=== PATIENT | male | born 1950 | race Caucasian/White ===

== ENCOUNTER → 2019-01-08 | Outpatient (CLI) | payer MEDICARE | END | disposition home or self-care (01) | LOC: CFH 11:02 | PROVIDERS: ATTEND Family Medicine | DX: M47.816 Spondylosis without myelopathy or radiculopathy, lumbar region (principal); M79.604 Pain in right leg | CPT/HCPCS: 72114 ==

== ENCOUNTER 2020-09-10 05:47 | Day surgery (SDC) | payer MEDICARE ==
[2020-09-07 10:47] VITALS: BP 146/83
[2020-09-07 12:07] LABS: BASOPHILS % (AUTO) 1 % (0-1); EOSINOPHILS % (AUTO) 1 % (1-7); LYMPHOCYTES % (AUTO) 27 % (22-44); MEAN CORPUSCULAR HEMOGLOBIN 31.7 pg (27.5-34.5); MEAN CORPUSCULAR HGB CONC 33.4 g/dL (33.2-36.2); MEAN PLATELET VOLUME 7.5 fL (7.4-10.4); MONOCYTES % (AUTO) 10 % (2-9); NEUTROPHILS % (AUTO) 62 % (42-75); PLATELET COUNT 201 x10^3/uL (130-400); RED BLOOD COUNT 4.67 x10^6/uL (4.38-5.82); RED CELL DISTRIBUTION WIDTH 12.9 % (9.4-14.8)
[2020-09-07 12:11] LABS: MD NO
[2020-09-07 12:14] LABS: CHLORIDE 105 mmol/L (98-107)
[2020-09-07 12:19] LABS: INTERNATIONAL NORMALIZED RATIO 1.02 (0.93-1.1); PROTHROMBIN TIME 10.8 Seconds (9.6-11.5)
[2020-09-07 12:21] LABS: ALANINE AMINOTRANSFERASE 28 U/L (12-78); ALBUMIN 4.1 g/dL (3.4-5.0); ALKALINE PHOSPHATASE 49 U/L (45-117); ANION GAP 4 mmol/L (5-15); BILIRUBIN,TOTAL 0.6 mg/dL (0.2-1.0); CALCIUM 9.2 mg/dL (8.5-10.1); CREATININE 0.88 mg/dL (0.7-1.3); TOTAL PROTEIN 7.8 g/dL (6.4-8.2)
[~2020-09-10] VITALS: Ht 190.5 cm; Wt 85.0 kg
[~2020-09-10 05:47] MED LIST: ROSU10TA2 PO
[2020-09-10] MEDS ORDERED: EPINEPHRINE 1 MG/ML, 1ML ONE (06:50)
[2020-09-10] MEDS ORDERED: BUPIVACAINE/PF 0.5% ONE (06:50)
[2020-09-10] MEDS ORDERED: CHLORHEXIDINE 15 ML UDC MM ONE (07:00)
[2020-09-10] MEDS ORDERED: LACTATED RINGERS 1,000 ML IV SCH (07:00)
[2020-09-10] MEDS ORDERED: FENTANYL PF 250 MCG/5ML ONE (07:27)
[2020-09-10] MEDS ORDERED: MIDAZOLAM 1 MG/ML, 2ML ONE (07:27)
[2020-09-10] MEDS ORDERED: PROPOFOL 10 MG/ML, 20ML ONE (07:42)
[2020-09-10] MEDS ORDERED: ONDANSETRON 2MG/ML, 2ML ONE (07:42)
[2020-09-10] MEDS ORDERED: CEFAZOLIN 1,000 MG ONE (07:42)
[2020-09-10] MEDS ORDERED: DEXAMETHASONE 4 MG/ML, 1ML ONE (07:42)
[2020-09-10] MEDS ORDERED: SUGAMMADEX 200 MG/2 ML IVPush ONE (07:42)
[2020-09-10] MEDS ORDERED: LIDOCAINE PF 2%, 5ML ONE (07:42)
[2020-09-10] MEDS ORDERED: ROCURONIUM 10 MG/ML,10ML ONE (07:42)
[2020-09-10] MEDS ORDERED: DIPHENHYDRAMINE 50 MG/ML, 1ML IVPush PRN (08:30)
[2020-09-10] MEDS ORDERED: METOCLOPRAMIDE 5 MG/ML, 2ML IVPush PRN (08:30)
[2020-09-10] MEDS ORDERED: DIAZEPAM 5 MG/ML, 2ML IVPush PRN (08:30)
[2020-09-10] MEDS ORDERED: ONDANSETRON 2MG/ML, 2ML IVPush PRN (08:30)
[2020-09-10] MEDS ORDERED: HYDROmorphone 1 MG/ML, 1ML INJ IVPush PRN (08:30)
[2020-09-10] MEDS ORDERED: hydrALAzine 20 MG/ML, 1ML IV PRN (08:30)
[2020-09-10] MEDS ORDERED: MEPERIDINE/PF 25MG/0.5ML IVPush PRN (08:30)
[2020-09-10] MEDS ORDERED: LABETALOL 5MG/ML, 20ML IV PRN (08:30)
[2020-09-10] MEDS ORDERED: PROMETHAZINE 25 MG/ML, 1ML IVPush PRN (08:30)
[2020-09-10] MEDS ORDERED: OXYcodone 5 MG/5 ML ORAL.SOL UDC PO PRN (08:30)
[2020-09-10] MEDS ORDERED: FENTANYL PF 100 MCG/2ML IV PRN (08:30)
[2020-09-10] MEDS ORDERED: ACETAMINOPHEN 325 MG TABLET PO PRN (08:30)
[2020-09-10] MEDS ORDERED: KETOROLAC 30 MG/1 ML ONE (09:15)
[2020-09-10] MEDS ORDERED: ACETAMINOPHEN 650 MG/20.3 ML UDC ONE (09:15)
[2020-09-10] MEDS ORDERED: KETOROLAC 30 MG/1 ML IVPush ONE (09:30)
== END 2020-09-10 12:10 | disposition home or self-care (01) ==
LOC: OUT 05:47 → EDSTATUS 07:30 → OUT 12:10
PROVIDERS: ATTEND Surgery
DX: C43.72 Malignant melanoma of left lower limb, including hip (principal); Z20.828 Contact with and (suspected) exposure to other viral communicable diseases; E78.00 Pure hypercholesterolemia, unspecified; F17.210 Nicotine dependence, cigarettes, uncomplicated; Z79.01 Long term (current) use of anticoagulants; Z79.899 Other long term (current) drug therapy; Z88.2 Allergy status to sulfonamides; Z98.890 Other specified postprocedural states; Z82.49 Family history of ischemic heart disease and other diseases of the circulatory system
CPT/HCPCS: 14020; 36415; 80053; 85025; 85610; 87635; 88307; 88342; 93005; J0171; J0690; J1100; J1885; J2250; J2405; J2704; J3010